=== PATIENT | male | born 1960 | race Caucasian/White ===

== ENCOUNTER 2023-01-21 18:13 | Emergency (ER) | payer BC ==
[2023-01-21] MEDS: Diphtheria,Pertussis(Acell),Tetanus Vaccine 0.5 ML Syringe IM ONE (18:44)
[2023-01-21] MEDS: Bacitracin Oint 1 GM U/D Packet TOP ONE (18:45)
[2023-01-21] MEDS: Lidocaine 1% 5 ML VIAL INJECT ONE (18:52)
== END 2023-01-21 18:52 | disposition home or self-care (01) ==
LOC: DL.ED 18:13
DX: S50.852A Superficial foreign body of left forearm, initial encounter (principal); E78.00 Pure hypercholesterolemia, unspecified; I10 Essential (primary) hypertension; E11.9 Type 2 diabetes mellitus without complications; Z79.84 Long term (current) use of oral hypoglycemic drugs; Z79.899 Other long term (current) drug therapy
CPT/HCPCS: 90471; 90715; 99282; 99283-25; A9270-GY; J3490